=== PATIENT | male | born 1990 | race Caucasian/White ===

== ENCOUNTER 2020-06-10 16:40 | Emergency (ER) | payer MEDICAID ==
--- NOTE | 2020-06-10 18:36 | XR ---
EXAMINATION TYPE: XR chest 2V DATE OF EXAM: 06/10/2020 COMPARISON: NONE HISTORY: Short of breath TECHNIQUE: 2 views FINDINGS: There is some patchy pneumonia with airspace infiltrate in the right mid and lower lung fie ld. Left lung is fairly clear. Heart size is normal. There is no heart failure. There are is no sign of mediastinal adenopathy. This possible minimal infiltrate left midlung field. IMPRESSION: Pulmonary infiltrates as above consistent with pneumonia mainly on the right side. No hea rt failure.
[2020-06-10] MEDS ORDERED: IBUPROFEN 600 MG TAB PO STA (19:33)
[2020-06-10] MEDS ORDERED: ACETAMINOPHEN TAB 325 MG TAB PO STA (19:33)
--- NOTE | 2020-06-10 19:43 | ED ---
SOB HPI - General Chief Complaint: Shortness of Breath Stated Complaint: sob Time Seen by Provider: 06/10/20 19:33 Source: patient, RN notes reviewed Mode of arrival: ambulatory Limitations: no limitations - History of Present Illness Initial Comments: Patient is a 30-year-old male that presents to the emergency department complaining of increased shortness of breath over the last 2 days. He noted that he's been having a cough for approximately 8 days. He decided come emergency room to get evaluated since the shortness of breath did start. Patien t was in no apparent distress or pain while sitting in bed during exam and interview. He denied any chest pain headache nausea vomiting diarrhea constipation fatigue chills. - Related Data Home Medications Medication Instructions Recorded Confirmed Cefuroxime Axetil [Ceftin] 500 mg PO BID 09/01/13 09/01/13 Lisinopril [Prinivil] 10 mg PO DAILY 09/01/13 09/01/13 predniSONE 0 mg PO DIRECTED 09/01/13 09/01/13 Allergies Allergy/AdvReac Type Severity Reaction Status Date / Time egg Allergy Unknown Verified 06/10/20 17:54 Childhood Review of Systems ROS Statement: Those systems with pertinent positive or pertinent negative responses have been documented in the HPI. ROS Other: All systems not noted in ROS Statement are negative. Past Medical History Past Medical History: No Reported History History of Any Multi-Drug Resistant Organisms: None Reported Past Surgical History: No Surgical Hx Reported Past Psychological History: No Psychological Hx Reported Smoking Status: Never smoker Past Alcohol Use History: Occasional Past Drug Use History: None Reported General Exam Limitations: no limitations General appearance: alert, in no apparent distress, obese Head exam: Present: atraumatic, normocephalic, normal inspection Eye exam: Present: normal appearance, PERRL, EOMI. Absent: scleral icterus, conjunctival injection, periorbital swelling Neck exam: Present: normal inspection. Absent: tenderness, meningismus, lymphadenopathy Respiratory exam: Present: normal lung sounds bilaterally (Upper lobes.), wheezes (Bilateral lower lobes). Absent: respiratory distress, rales, rhonchi, stridor Cardiovascular Exam: Present: regular rate, normal rhythm, normal heart sounds. Absent: systolic murmur, diastolic murmur, rubs, gallop, clicks GI/Abdominal exam: Present: soft, normal bowel sounds. Absent: distended, tenderness, guarding, rebound, rigid Extremities exam: Present: normal inspection, full ROM, normal capillary refill. Absent: tenderness, pedal edema, joint swelling, calf tenderness Back exam: Present: normal inspection Neurological exam: Present: alert, oriented X3, CN II-XII intact Psychiatric exam: Present: normal affect, normal mood Skin exam: Present: warm, dry, intact, normal color. Absent: rash Course Vital Signs 06/10/20 06/10/20 06/10/20 17:51 19:34 21:03 Temperature 102.8 F H 102.9 F H 101 F H Pulse Rate 109 H 100 91 Respiratory 24 20 17 Rate Blood Pressure 120/84 137/94 125/82 O2 Sat by Pulse 98 96 96 Oximetry Medical Decision Making - Medical Decision Making 30-year-old male complaining of increased shortness of breath over the last 2 days, but Covid like symptoms for approximately 8 days. Covid test, chest x-ray ordered. Covid test positive. Line chest x-ray shows pulmonary infiltrates planning on the right side. 650 mg of Tylenol, 600 mg of Motrin ordered for fever. Patient educated on monoclonal antibody therapy, patient agrees to treatment. Case discussed with Dr. Crowley, patient discharged home. - Lab Data Lab Results 06/10/20 Range/Units 17:57 Coronavirus (PCR) Detected A (Not Detectd) - Radiology Data Radiology results: report reviewed, image reviewed Chest x-ray: Pulmonary infiltrates consistent with pneumonia mainly on the right side. No heart failure. Disposition Clinical Impression: COVID-19 Disposition: HOME SELF-CARE Condition: Stable Instructions (If sedation given, give patient instructions): Coronavirus Disease 2019 (COVID-19) Additional Instructions: Please return to the Emergency Department if symptoms worsen or any other concerns. CBC guidelines quarantine for 10-14 days from symptom onset. Follow-up primary care soon as possible. Take Tylenol Motrin for symptomatically control fever muscle aches. Is patient prescribed a controlled substance at d/c from ED?: No Referrals: None,Stated [Primary Care Provider] - 1-2 days Time of Disposition: 22:17
[2020-06-10] MEDS ORDERED: BAMLANIVIMAB (EUA) 700 MG, ETESEVIMAB (EUA) 1,400 MG in SODIUM CHLORIDE 0.9% 50 ML IVPB ONE (20:45)
[2020-06-10 21:04] VITALS: RESP 17; TEMP 101
[2020-06-10 22:24] VITALS: BP 126/72; PULSE 82
== END 2020-06-10 22:25 | disposition home or self-care (01) ==
LOC: EC 16:40
DX: U07.1 COVID-19 (principal)
CPT/HCPCS: 87635; 71046; 99285; 96374; Q0245